=== PATIENT | male | born 1950 | race Caucasian/White ===

== ENCOUNTER → 2018-01-21 | Outpatient (CLI) | payer MEDICARE, OTHER | END | disposition home or self-care (01) | LOC: CVU 12:41 | PROVIDERS: ATTEND Internal Medicine Cardiovascular Disease | DX: I10 Essential (primary) hypertension (principal); R42 Dizziness and giddiness | CPT/HCPCS: 93306 ==

== ENCOUNTER 2018-02-15 23:50 | Inpatient (IN) | payer MEDICARE, OTHER ==
[~2018-02-15] VITALS: Ht 185.4 cm; Wt 77.2 kg
[~2018-02-15 23:50] MED LIST: CHOL500015 PO; LOSA25TA5 PO; MULT-115 PO
[2018-02-16] MEDS ORDERED: LOSA50TA2 PO (00:04)
[2018-02-16] MEDS ORDERED: PROMETHAZINE 25 MG/ML, 1ML IM ONE (00:30)
[2018-02-16] MEDS ORDERED: FAMOTIDINE 20 MG/2 ML IVPush ONE (00:30)
[2018-02-16] MEDS ORDERED: SODIUM CHLORIDE FLUSH 10ML SYR IVF ONE (00:30)
[2018-02-16] MEDS ORDERED: MORPHINE SULFATE 4 MG/ML, 1ML IVPush PRN (00:30)
[2018-02-16] MEDS ORDERED: SODIUM CHLORIDE 0.9% 1,000ML IVBOLUS ONE (00:30)
[2018-02-16] MEDS ORDERED: ONDANSETRON 2MG/ML, 2ML IVPush ONE (00:30)
[2018-02-16] MEDS ORDERED: ONDANSETRON 2MG/ML, 2ML ONE (00:42)
[2018-02-16 00:43] LABS: BASOPHILS # (AUTO) 0.02 x10^3/uL (0-0.1); BASOPHILS % (AUTO) 0 % (0-1); EOSINOPHILS # (AUTO) 0.06 x10^3/uL (0-0.4); EOSINOPHILS % (AUTO) 1 % (1-7); LYMPHOCYTES # (AUTO) 1.08 x10^3/uL (1-3.4); LYMPHOCYTES % (AUTO) 18 % (22-44); MD NO; MEAN CORPUSCULAR HEMOGLOBIN 31.7 pg (27.5-34.5); MEAN CORPUSCULAR HGB CONC 33.8 g/dL (33.2-36.2); MEAN CORPUSCULAR VOLUME 93.8 fL (81-97); MONOCYTES # (AUTO) 0.42 x10^3/uL (0.2-0.8); MONOCYTES % (AUTO) 7 % (2-9); NEUTROPHILS % (AUTO) 74 % (42-75); PLATELET COUNT 238 x10^3/uL (130-400); RED BLOOD COUNT 4.71 x10^6/uL (4.38-5.82); RED CELL DISTRIBUTION WIDTH 13.6 % (9.4-14.8)
[2018-02-16] MEDS ORDERED: FAMOTIDINE 20 MG/2 ML ONE (00:43)
[2018-02-16] MEDS ORDERED: MORPHINE SULFATE 4 MG/ML, 1ML ONE (00:43)
[2018-02-16 00:53] LABS: ALANINE AMINOTRANSFERASE 145 U/L (12-78); ALBUMIN 3.8 g/dL (3.4-5.0); ANION GAP 8 mmol/L (5-15); CALCIUM 9.6 mg/dL (8.5-10.1); CHLORIDE 98 mmol/L (98-107); CREATININE 1.01 mg/dL (0.7-1.3)
[2018-02-16 00:56] LABS: ALKALINE PHOSPHATASE 166 U/L (45-117); TOTAL PROTEIN 7.1 g/dL (6.4-8.2)
[2018-02-16 02:24] LABS: MICROSCOPIC INDICATED
[2018-02-16] MEDS ORDERED: POTASSIUM CHLORIDE 20 MEQ TAB.ER.PRT PO ONE (02:30)
[2018-02-16] MEDS ORDERED: TEMAZEPAM 15 MG CAPSULE PO PRN (02:30)
[2018-02-16] MEDS ORDERED: ONDANSETRON 2MG/ML, 2ML IVPush PRN (02:30)
[2018-02-16] MEDS ORDERED: OXYcodone IR 5MG TABLET PO PRN (02:30)
[2018-02-16] MEDS ORDERED: hydrALAzine 20 MG/ML, 1ML IVPush PRN (02:30)
[2018-02-16] MEDS ORDERED: ACETAMINOPHEN 325 MG TABLET PO PRN (02:30)
[2018-02-16] MEDS ORDERED: HYDROmorphone 2 MG/ML, 1ML IVPush PRN (02:30)
[2018-02-16] MEDS ORDERED: ONDANSETRON ODT 4 MG PO PRN (02:30)
[2018-02-16] MEDS ORDERED: DOCUSATE 100 MG CAPSULE PO PRN (02:30)
[2018-02-16 02:31] LABS: CULTURE INDICATED? NO
[2018-02-16 02:41] VITALS: BP 152/88
[2018-02-16] MEDS: POTASSIUM CHLORIDE 20 MEQ in LACTATED RINGERS 1,000 ML IV SCH ×2 (03:06→15:04)
[2018-02-16 05:24] LABS: BASOPHILS # (AUTO) 0.02 x10^3/uL (0-0.1); BASOPHILS % (AUTO) 0 % (0-1); EOSINOPHILS # (AUTO) 0.04 x10^3/uL (0-0.4); EOSINOPHILS % (AUTO) 1 % (1-7); LYMPHOCYTES # (AUTO) 1.08 x10^3/uL (1-3.4); LYMPHOCYTES % (AUTO) 18 % (22-44); MD NO; MEAN CORPUSCULAR HGB CONC 33.8 g/dL (33.2-36.2); MEAN CORPUSCULAR VOLUME 94.6 fL (81-97); MEAN PLATELET VOLUME 7.1 fL (7.4-10.4); MONOCYTES # (AUTO) 0.36 x10^3/uL (0.2-0.8); MONOCYTES % (AUTO) 6 % (2-9); NEUTROPHILS # (AUTO) 4.48 x10^3/uL (1.8-6.8); NEUTROPHILS % (AUTO) 75 % (42-75); PLATELET COUNT 215 x10^3/uL (130-400); RED BLOOD COUNT 4.11 x10^6/uL (4.38-5.82); RED CELL DISTRIBUTION WIDTH 13.5 % (9.4-14.8)
[2018-02-16 05:38] LABS: CHLORIDE 103 mmol/L (98-107)
[2018-02-16 05:50] LABS: ALANINE AMINOTRANSFERASE 119 U/L (12-78); ALBUMIN 3.2 g/dL (3.4-5.0); ALKALINE PHOSPHATASE 136 U/L (45-117); ANION GAP 7 mmol/L (5-15); BILIRUBIN,TOTAL 2.4 mg/dL (0.2-1.0); CALCIUM 8.9 mg/dL (8.5-10.1); CREATININE 0.91 mg/dL (0.7-1.3); TOTAL PROTEIN 5.9 g/dL (6.4-8.2)
[2018-02-16 06:53] VITALS: BP 132/80
[2018-02-16] MEDS: FAMOTIDINE 20 MG/2 ML IVPush SCH ×2 (09:22→20:13)
[2018-02-16 11:05] VITALS: BP 121/74
[2018-02-16 14:20] VITALS: BP 126/73
[2018-02-16] MEDS ORDERED: OMNIPAQUE 350 MG/ML, 100ML BOTTLE ONE (17:55)
[2018-02-16 19:20] VITALS: BP 151/79
[2018-02-17] MEDS: POTASSIUM CHLORIDE 20 MEQ in LACTATED RINGERS 1,000 ML IV SCH (01:03)
[2018-02-17 01:11] VITALS: BP 156/80
[2018-02-17 05:41] LABS: CHOL/HDL RATIO 3.4; LDL/HDL RATIO 1.9 (0.5-3.0)
[2018-02-17 07:22] VITALS: BP 124/73
[2018-02-17 07:46] LABS: BILIRUBIN, DIRECT 1.2 mg/dL (0.1-0.2)
[2018-02-17 07:49] LABS: BILIRUBIN,INDIRECT 0.8 mg/dL (0.0-2.0); TOTAL PROTEIN 5.6 g/dL (6.4-8.2)
[2018-02-17] MEDS: FAMOTIDINE 20 MG/2 ML IVPush SCH (08:13)
[2018-02-17 13:22] VITALS: BP 159/79
[2018-02-17] MEDS ORDERED: ONDA4TAB13 PO (16:57)
[2018-02-17] MEDS ORDERED: FAMO40OR3 PO (16:57)
== END 2018-02-17 18:03 | disposition home or self-care (01) | DRG 393 ==
LOC: ED 23:59 → EDIP 02-16 01:53 → 3NE 02-16 02:29
PROVIDERS: ADMIT Internal Medicine; ATTEND Internal Medicine
DX: K91.89 Other postprocedural complications and disorders of digestive system (principal); K85.90 Acute pancreatitis without necrosis or infection, unspecified; C17.0 Malignant neoplasm of duodenum; E87.6 Hypokalemia; I10 Essential (primary) hypertension; Z96.642 Presence of left artificial hip joint; Y83.8 Other surgical procedures as the cause of abnormal reaction of the patient, or of later complication, without mention of misadventure at the time of the procedure; Y92.9 Unspecified place or not applicable
CPT/HCPCS: 36415; 71260; 74022; 74177; 74181; 80053; 80061; 80076; 81001; 83690; 83735; 84100; 85025; 93005; 96361; 96374; 96375; 99285; J2405; J3480; Q9967; J7030; J7120; S0028

== ENCOUNTER 2018-02-22 09:29 | Inpatient (IN) | payer MEDICARE, OTHER ==
[~2018-02-22] VITALS: Ht 185.4 cm; Wt 77.9 kg
[~2018-02-22 09:29] MED LIST changes: +FAMO40OR3 PO; +LOSA50TA2 PO; +ONDA4TAB13 PO
[2018-02-22] MEDS ORDERED: FAMOTIDINE 20 MG/2 ML ONE (10:27)
[2018-02-22] MEDS ORDERED: ONDANSETRON 2MG/ML, 2ML ONE (10:27)
[2018-02-22] MEDS ORDERED: MAALOX/HYOSCYAMINE/LIDOCAINE 45 ML BTL ONE (10:27)
[2018-02-22] MEDS ORDERED: SODIUM CHLORIDE 0.9% 1,000ML IVBOLUS ONE (10:30)
[2018-02-22] MEDS ORDERED: ONDANSETRON 2MG/ML, 2ML IVPush ONE (10:30)
[2018-02-22] MEDS ORDERED: MAALOX/HYOSCYAMINE/LIDOCAINE 45 ML BTL PO ONE (10:30)
[2018-02-22] MEDS ORDERED: SODIUM CHLORIDE FLUSH 10ML SYR IVF ONE (10:30)
[2018-02-22] MEDS ORDERED: FAMOTIDINE 20 MG/2 ML IVP ONE (10:30)
[2018-02-22 10:54] LABS: MEAN CORPUSCULAR HEMOGLOBIN 32.6 pg (27.5-34.5); MEAN CORPUSCULAR HGB CONC 34.1 g/dL (33.2-36.2); MEAN CORPUSCULAR VOLUME 95.8 fL (81-97); MEAN PLATELET VOLUME 6.9 fL (7.4-10.4); PLATELET COUNT 305 x10^3/uL (130-400)
[2018-02-22 11:08] LABS: TROPONIN I < 0.015 ng/mL (0.000-0.045)
[2018-02-22 11:10] LABS: BASOPHILS # (AUTO) 0.02 x10^3/uL (0-0.1); BASOPHILS % (AUTO) 0 % (0-1); EOSINOPHILS # (AUTO) 0.09 x10^3/uL (0-0.4); EOSINOPHILS % (AUTO) 1 % (1-7); LYMPHOCYTES # (AUTO) 0.84 x10^3/uL (1-3.4); LYMPHOCYTES % (AUTO) 11 % (22-44); MD SCAN; MONOCYTES # (AUTO) 0.53 x10^3/uL (0.2-0.8); MONOCYTES % (AUTO) 7 % (2-9); NEUTROPHILS # (AUTO) 6.19 x10^3/uL (1.8-6.8); NEUTROPHILS % (AUTO) 81 % (42-75)
[2018-02-22 11:13] LABS: ALANINE AMINOTRANSFERASE 89 U/L (12-78); ALBUMIN 3.4 g/dL (3.4-5.0); ANION GAP 7 mmol/L (5-15); CALCIUM 9.3 mg/dL (8.5-10.1); CHLORIDE 98 mmol/L (98-107); CREATININE 1.01 mg/dL (0.7-1.3)
[2018-02-22 11:15] LABS: ALKALINE PHOSPHATASE 148 U/L (45-117); BILIRUBIN,TOTAL 2.3 mg/dL (0.2-1.0); TOTAL PROTEIN 6.5 g/dL (6.4-8.2)
[2018-02-22 12:59] VITALS: BP 145/77
[2018-02-22] MEDS ORDERED: POTASSIUM CHLORIDE 20 MEQ TAB.ER.PRT PO ONE (13:30)
[2018-02-22] MEDS ORDERED: ONDANSETRON 2MG/ML, 2ML IVPush PRN (13:30)
[2018-02-22] MEDS ORDERED: ONDANSETRON ODT 4 MG PO PRN (13:30)
[2018-02-22] MEDS ORDERED: LABETALOL 5MG/ML, 20ML IVPush PRN (13:30)
[2018-02-22] MEDS ORDERED: POLYETHYLENE GLYCOL 17 GM PACKET PO PRN (13:30)
[2018-02-22 13:34] LABS: INTERNATIONAL NORMALIZED RATIO 1.22 (0.93-1.1); PROTHROMBIN TIME 12.6 Seconds (9.6-11.5)
[2018-02-22 13:46] LABS: FREE T4 (FREE THYROXINE) 1.35 ng/dL (0.76-1.46)
[2018-02-22] MEDS ORDERED: POTASSIUM CHLORIDE 20 MEQ PACKET PO ONE (14:00)
[2018-02-22] MEDS: PANTOPRAZOLE 40 MG IV IVPush SCH (15:37)
[2018-02-22] MEDS: D5%-0.45NACL+KCL 20MEQ 1,000 ML IV SCH ×2 (16:00→23:48)
[2018-02-22] MEDS ORDERED: POTASSIUM CHLORIDE 40 MEQ in SODIUM CHLORIDE 0.9% 500 ML IV ONE (16:30)
[2018-02-22 16:37] LABS: MICROSCOPIC NOT IND
[2018-02-22 16:39] LABS: CULTURE INDICATED? NO
[2018-02-22 20:28] VITALS: BP 147/70
[2018-02-23 02:32] VITALS: BP 134/77
[2018-02-23] MEDS: PANTOPRAZOLE 40 MG IV IVPush SCH ×2 (02:40→14:52)
[2018-02-23 05:00] LABS: BASOPHILS # (AUTO) 0.03 x10^3/uL (0-0.1); BASOPHILS % (AUTO) 0 % (0-1); EOSINOPHILS # (AUTO) 0.08 x10^3/uL (0-0.4); EOSINOPHILS % (AUTO) 1 % (1-7); LYMPHOCYTES # (AUTO) 0.56 x10^3/uL (1-3.4); LYMPHOCYTES % (AUTO) 8 % (22-44); MD NO; MEAN CORPUSCULAR HEMOGLOBIN 31.9 pg (27.5-34.5); MEAN CORPUSCULAR HGB CONC 33.6 g/dL (33.2-36.2); MEAN CORPUSCULAR VOLUME 94.8 fL (81-97); MEAN PLATELET VOLUME 6.4 fL (7.4-10.4); MONOCYTES % (AUTO) 8 % (2-9); NEUTROPHILS % (AUTO) 82 % (42-75); PLATELET COUNT 262 x10^3/uL (130-400); RED BLOOD COUNT 4.06 x10^6/uL (4.38-5.82); RED CELL DISTRIBUTION WIDTH 12.9 % (9.4-14.8)
[2018-02-23 05:15] LABS: ALBUMIN 2.8 g/dL (3.4-5.0); ANION GAP 8 mmol/L (5-15); CALCIUM 8.2 mg/dL (8.5-10.1); CHLORIDE 103 mmol/L (98-107)
[2018-02-23 05:28] LABS: ALANINE AMINOTRANSFERASE 177 U/L (12-78); ALKALINE PHOSPHATASE 180 U/L (45-117); BILIRUBIN,TOTAL 2.5 mg/dL (0.2-1.0); CREATININE 0.78 mg/dL (0.7-1.3); TOTAL PROTEIN 5.6 g/dL (6.4-8.2)
[2018-02-23 07:15] VITALS: BP 136/78
[2018-02-23] MEDS ORDERED: MAGNESIUM SULFATE PMX 2GM/50ML 50 ML IV ONE (07:30)
[2018-02-23] MEDS: D5%-0.45NACL+KCL 20MEQ 1,000 ML IV SCH ×3 (08:00→23:38)
[2018-02-23] MEDS: SENNA/DOCUSATE TABLET PO SCH (08:09)
[2018-02-23] MEDS: CHOLECALCIFEROL 1,000 UNIT TABLET PO SCH (08:11)
[2018-02-23 12:48] VITALS: BP 114/75
[2018-02-23 19:02] VITALS: BP 140/80
[2018-02-24] MEDS: PANTOPRAZOLE 40 MG IV IVPush SCH ×2 (02:43→15:44)
[2018-02-24 03:50] VITALS: BP 152/72
[2018-02-24 06:46] LABS: BASOPHILS # (AUTO) 0.02 x10^3/uL (0-0.1); BASOPHILS % (AUTO) 0 % (0-1); EOSINOPHILS # (AUTO) 0.14 x10^3/uL (0-0.4); EOSINOPHILS % (AUTO) 3 % (1-7); LYMPHOCYTES # (AUTO) 0.73 x10^3/uL (1-3.4); LYMPHOCYTES % (AUTO) 14 % (22-44); MD NO; MEAN CORPUSCULAR HEMOGLOBIN 31.6 pg (27.5-34.5); MEAN CORPUSCULAR HGB CONC 33.4 g/dL (33.2-36.2); MEAN CORPUSCULAR VOLUME 94.7 fL (81-97); MEAN PLATELET VOLUME 6.2 fL (7.4-10.4); MONOCYTES # (AUTO) 0.43 x10^3/uL (0.2-0.8); MONOCYTES % (AUTO) 9 % (2-9); NEUTROPHILS # (AUTO) 3.78 x10^3/uL (1.8-6.8); NEUTROPHILS % (AUTO) 74 % (42-75); PLATELET COUNT 259 x10^3/uL (130-400); RED BLOOD COUNT 4.06 x10^6/uL (4.38-5.82); RED CELL DISTRIBUTION WIDTH 13.1 % (9.4-14.8)
[2018-02-24 06:58] LABS: ALBUMIN 2.9 g/dL (3.4-5.0); ANION GAP 7 mmol/L (5-15); CALCIUM 8.1 mg/dL (8.5-10.1); CHLORIDE 105 mmol/L (98-107)
[2018-02-24 07:02] LABS: ALANINE AMINOTRANSFERASE 180 U/L (12-78); ALKALINE PHOSPHATASE 203 U/L (45-117); BILIRUBIN,TOTAL 1.8 mg/dL (0.2-1.0); CREATININE 0.89 mg/dL (0.7-1.3); TOTAL PROTEIN 5.7 g/dL (6.4-8.2)
[2018-02-24 07:10] VITALS: BP 146/82
[2018-02-24] MEDS: CHOLECALCIFEROL 1,000 UNIT TABLET PO SCH (08:46)
[2018-02-24] MEDS: SENNA/DOCUSATE TABLET PO SCH (08:46)
[2018-02-24] MEDS: D5%-0.45NACL+KCL 20MEQ 1,000 ML IV SCH ×2 (10:46→15:30)
[2018-02-24 12:56] VITALS: BP 133/72
[2018-02-24] MEDS ORDERED: OMEP-110 PO (17:36)
== END 2018-02-24 19:15 | disposition home health service (06) | DRG 439 ==
LOC: ED 11:32 → 4EST 11:33 → ED 12:25
PROVIDERS: ADMIT Hospitalist; ATTEND Hospitalist
DX: K85.90 Acute pancreatitis without necrosis or infection, unspecified (principal); C17.0 Malignant neoplasm of duodenum; E87.1 Hypo-osmolality and hyponatremia; G89.3 Neoplasm related pain (acute) (chronic); E87.6 Hypokalemia; E86.0 Dehydration; I10 Essential (primary) hypertension; Z85.828 Personal history of other malignant neoplasm of skin; Z96.642 Presence of left artificial hip joint
CPT/HCPCS: 36415; 80053; 81003; 83690; 83735; 84100; 84439; 84443; 84484; 85025; 85610; 85730; 93005; 96361; 96374; 96375; 99285; J2405; J3480; C9113; J3475; J7030; J7040; S0028

== ENCOUNTER → 2018-04-12 | Outpatient (CLI) | payer MEDICARE, OTHER ==
[~2018-04-12] MED LIST changes: +OMEP-110 PO; +OMNIPAQUE 350 MG/ML, 100ML BOTTLE ONE
== END | disposition home or self-care (01) ==
LOC: RAD 09:33
PROVIDERS: ATTEND Specialist
DX: Z08 Encounter for follow-up examination after completed treatment for malignant neoplasm (principal); C25.0 Malignant neoplasm of head of pancreas; K86.81 Exocrine pancreatic insufficiency; J84.10 Pulmonary fibrosis, unspecified
CPT/HCPCS: 71260; 74160; J1642; Q9967

== ENCOUNTER 2018-05-07 14:39 | Inpatient (IN) | payer MEDICARE, OTHER ==
[~2018-05-07] VITALS: Ht 188 cm; Wt 64.1 kg
[~2018-05-07 14:39] MED LIST changes: -LOSA25TA5 PO; +LOSA25TA6 PO; -OMNIPAQUE 350 MG/ML, 100ML BOTTLE ONE
[2018-05-07 15:09] LABS: BASOPHILS # (AUTO) 0.01 x10^3/uL (0-0.1); BASOPHILS % (AUTO) 0 % (0-1); EOSINOPHILS # (AUTO) 0.04 x10^3/uL (0-0.4); EOSINOPHILS % (AUTO) 1 % (1-7); LYMPHOCYTES # (AUTO) 0.32 x10^3/uL (1-3.4); LYMPHOCYTES % (AUTO) 6 % (22-44); MD NO; MEAN CORPUSCULAR HEMOGLOBIN 30.1 pg (27.5-34.5); MEAN CORPUSCULAR HGB CONC 34.7 g/dL (33.2-36.2); MEAN CORPUSCULAR VOLUME 86.9 fL (81-97); MEAN PLATELET VOLUME 6.1 fL (7.4-10.4); MONOCYTES # (AUTO) 0.32 x10^3/uL (0.2-0.8); MONOCYTES % (AUTO) 6 % (2-9); NEUTROPHILS # (AUTO) 4.49 x10^3/uL (1.8-6.8); NEUTROPHILS % (AUTO) 87 % (42-75); PLATELET COUNT 162 x10^3/uL (130-400); RED BLOOD COUNT 4.09 x10^6/uL (4.38-5.82); RED CELL DISTRIBUTION WIDTH 14.2 % (9.4-14.8)
[2018-05-07 15:17] LABS: ALBUMIN 3.2 g/dL (3.4-5.0); ANION GAP 8 mmol/L (5-15); CALCIUM 8.4 mg/dL (8.5-10.1); CHLORIDE 102 mmol/L (98-107)
[2018-05-07 15:23] LABS: ALANINE AMINOTRANSFERASE 641 U/L (12-78); ALKALINE PHOSPHATASE 321 U/L (45-117); BILIRUBIN,TOTAL 4.1 mg/dL (0.2-1.0); CREATININE 1.52 mg/dL (0.7-1.3); TOTAL PROTEIN 6.6 g/dL (6.4-8.2); TROPONIN I < 0.015 ng/mL (0.000-0.045)
[2018-05-07] MEDS ORDERED: SODIUM CHLORIDE 0.9% 1,000 ML IV ONE (15:28)
[2018-05-07 16:09] LABS: MICROSCOPIC AUTO
[2018-05-07 16:29] LABS: CULTURE INDICATED? YES
[2018-05-07] MEDS ORDERED: CEFTRIAXONE PMX 1GM/50ML 50 ML ONE (17:43)
[2018-05-07] MEDS ORDERED: CEFTRIAXONE PMX 1GM/50ML 50 ML IV ONE (18:00)
[2018-05-07] MEDS ORDERED: ONDANSETRON ODT 4 MG PO PRN (18:30)
[2018-05-07] MEDS ORDERED: BISACODYL 10 MG SUPP PR PRN (18:30)
[2018-05-07] MEDS ORDERED: POLYETHYLENE GLYCOL 17 GM PACKET PO PRN (18:30)
[2018-05-07 19:00] VITALS: BP 132/83
[2018-05-07] MEDS: HEPARIN 5,000 UNITS/ML, 1ML SQ SCH (20:14)
[2018-05-07] MEDS: IBUPROFEN 200 MG TABLET PO PRN (21:29)
[2018-05-07] MEDS: NS + 20MEQ KCL 1,000 ML IV SCH (21:29)
[2018-05-07] MEDS ORDERED: LIPA1CAP PO (22:19)
[2018-05-08 00:14] VITALS: BP 131/72
[2018-05-08] MEDS ORDERED: DIPHENHYDRAMINE 25 MG CAPSULE PO ONE (01:30)
[2018-05-08] MEDS: HEPARIN 5,000 UNITS/ML, 1ML SQ SCH ×3 (01:38→20:44)
[2018-05-08 06:15] LABS: BASOPHILS # (AUTO) 0.01 x10^3/uL (0-0.1); BASOPHILS % (AUTO) 0 % (0-1); EOSINOPHILS # (AUTO) 0.05 x10^3/uL (0-0.4); EOSINOPHILS % (AUTO) 1 % (1-7); LYMPHOCYTES # (AUTO) 0.45 x10^3/uL (1-3.4); LYMPHOCYTES % (AUTO) 12 % (22-44); MD NO; MEAN CORPUSCULAR HEMOGLOBIN 30.4 pg (27.5-34.5); MEAN CORPUSCULAR HGB CONC 34.7 g/dL (33.2-36.2); MEAN CORPUSCULAR VOLUME 87.6 fL (81-97); MEAN PLATELET VOLUME 6.3 fL (7.4-10.4); MONOCYTES # (AUTO) 0.28 x10^3/uL (0.2-0.8); MONOCYTES % (AUTO) 8 % (2-9); NEUTROPHILS # (AUTO) 2.83 x10^3/uL (1.8-6.8); NEUTROPHILS % (AUTO) 78 % (42-75); PLATELET COUNT 137 x10^3/uL (130-400); RED BLOOD COUNT 3.46 x10^6/uL (4.38-5.82); RED CELL DISTRIBUTION WIDTH 14.3 % (9.4-14.8)
[2018-05-08 06:20] LABS: ALANINE AMINOTRANSFERASE 425 U/L (12-78); ALBUMIN 2.7 g/dL (3.4-5.0); ANION GAP 10 mmol/L (5-15); CALCIUM 8.3 mg/dL (8.5-10.1); CHLORIDE 107 mmol/L (98-107); CREATININE 1.09 mg/dL (0.7-1.3)
[2018-05-08 06:22] LABS: ALKALINE PHOSPHATASE 262 U/L (45-117); TOTAL PROTEIN 5.6 g/dL (6.4-8.2)
[2018-05-08 06:48] VITALS: BP 138/78
[2018-05-08] MEDS: CREON 36000 UNIT PO SCH ×3 (07:00→16:00)
[2018-05-08] MEDS: NS + 20MEQ KCL 1,000 ML IV SCH ×2 (07:56→18:25)
[2018-05-08] MEDS ORDERED: MULTIVITAMINS/MINERALS TABLET PO SCH (09:00)
[2018-05-08] MEDS ORDERED: CHOLECALCIFEROL 5,000u TAB PO SCH (09:00)
[2018-05-08] MEDS: SENNA/DOCUSATE TABLET PO SCH (09:24)
[2018-05-08] MEDS: OMEPRAZOLE 20 MG CAPSULE.DR PO SCH (09:25)
[2018-05-08] MEDS: LOSARTAN 25MG TABLET PO SCH (09:25)
[2018-05-08] MEDS: IBUPROFEN 200 MG TABLET PO PRN (11:03)
[2018-05-08] MEDS ORDERED: CATHFLO-ALTEPLASE 2 MG/2 ML CATHFLUSH ONE (11:30)
[2018-05-08] MEDS: morphine SULFATE 10 MG/ML, 1ML IVPush PRN (11:52)
[2018-05-08 12:02] VITALS: BP 174/79
[2018-05-08 19:18] VITALS: BP 108/66
[2018-05-09 01:01] VITALS: BP 101/60
[2018-05-09] MEDS: NS + 20MEQ KCL 1,000 ML IV SCH (04:43)
[2018-05-09] MEDS: HEPARIN 5,000 UNITS/ML, 1ML SQ SCH ×4 (04:54→19:51)
[2018-05-09] MEDS: CREON 36000 UNIT PO SCH ×4 (07:00→18:57)
[2018-05-09 08:07] VITALS: BP 134/79
[2018-05-09] MEDS: LOSARTAN 25MG TABLET PO SCH ×2 (08:57→15:31)
[2018-05-09] MEDS: SENNA/DOCUSATE TABLET PO SCH (08:57)
[2018-05-09] MEDS: OMEPRAZOLE 20 MG CAPSULE.DR PO SCH (08:57)
[2018-05-09] MEDS ORDERED: MIDAZOLAM 1 MG/ML, 2ML ONE (08:58)
[2018-05-09] MEDS ORDERED: FENTANYL PF 100 MCG/2ML ONE (08:58)
[2018-05-09] MEDS ORDERED: HYDROmorphone 1 MG/ML, 1ML IV PRN (09:30)
[2018-05-09] MEDS ORDERED: hydrALAzine 20 MG/ML, 1ML IV PRN (09:30)
[2018-05-09] MEDS ORDERED: ALBUTEROL SULFATE 2.5 MG/3 ML NPPB PRN (09:30)
[2018-05-09] MEDS ORDERED: OXYcodone 5 MG/5 ML ORAL.SOL UDC PO PRN (09:30)
[2018-05-09] MEDS ORDERED: FENTANYL PF 100 MCG/2ML IV PRN (09:30)
[2018-05-09] MEDS ORDERED: LABETALOL 5MG/ML, 20ML IV PRN (09:30)
[2018-05-09] MEDS ORDERED: LORazepam 2 MG/ML, 1ML IVPush PRN (09:30)
[2018-05-09] MEDS ORDERED: ONDANSETRON 2MG/ML, 2ML ONE (10:26)
[2018-05-09] MEDS ORDERED: PROPOFOL 10 MG/ML, 20ML ONE (10:26)
[2018-05-09] MEDS ORDERED: ROCURONIUM 10MG/ML,5ML ONE (10:26)
[2018-05-09] MEDS ORDERED: DEXAMETHASONE 4 MG/ML, 1ML ONE (10:26)
[2018-05-09] MEDS ORDERED: SUCCINYLCHOLINE 20 MG/ML, 10ML ONE (10:26)
[2018-05-09 12:54] LABS: ALANINE AMINOTRANSFERASE 296 U/L (12-78); ALBUMIN 2.6 g/dL (3.4-5.0); ANION GAP 10 mmol/L (5-15); CALCIUM 8.3 mg/dL (8.5-10.1); CHLORIDE 105 mmol/L (98-107); CREATININE 1.08 mg/dL (0.7-1.3)
[2018-05-09 12:55] LABS: ALKALINE PHOSPHATASE 260 U/L (45-117); BILIRUBIN,TOTAL 4.8 mg/dL (0.2-1.0); TOTAL PROTEIN 5.7 g/dL (6.4-8.2)
[2018-05-09 14:43] VITALS: BP 149/79
[2018-05-09 15:35] LABS: INTERNATIONAL NORMALIZED RATIO 1.24 (0.93-1.1); PROTHROMBIN TIME 12.8 Seconds (9.6-11.5)
[2018-05-09 19:36] VITALS: BP 147/80
[2018-05-10 00:10] VITALS: BP 139/78
[2018-05-10 05:41] LABS: INTERNATIONAL NORMALIZED RATIO 1.24 (0.93-1.1); PROTHROMBIN TIME 12.8 Seconds (9.6-11.5)
[2018-05-10 05:51] LABS: ALBUMIN 2.5 g/dL (3.4-5.0); ANION GAP 10 mmol/L (5-15); CALCIUM 8.6 mg/dL (8.5-10.1); CHLORIDE 105 mmol/L (98-107)
[2018-05-10 05:57] LABS: ALANINE AMINOTRANSFERASE 247 U/L (12-78); ALKALINE PHOSPHATASE 262 U/L (45-117); BILIRUBIN,TOTAL 4.7 mg/dL (0.2-1.0); TOTAL PROTEIN 5.4 g/dL (6.4-8.2)
[2018-05-10 07:10] VITALS: BP 164/80
[2018-05-10] MEDS: LOSARTAN 25MG TABLET PO SCH (08:28)
[2018-05-10] MEDS: OMEPRAZOLE 20 MG CAPSULE.DR PO SCH (08:28)
[2018-05-10] MEDS: SENNA/DOCUSATE TABLET PO SCH (08:29)
[2018-05-10] MEDS: morphine SULFATE 10 MG/ML, 1ML IVPush PRN ×4 (08:36→21:45)
[2018-05-10] MEDS: CREON 36000 UNIT PO SCH ×2 (09:07→16:00)
[2018-05-10 12:07] VITALS: BP 121/80
[2018-05-10] MEDS: HEPARIN 5,000 UNITS/ML, 1ML SQ SCH ×2 (13:00→19:04)
[2018-05-10] MEDS ORDERED: FENTANYL PF 100 MCG/2ML ONE (14:50)
[2018-05-10] MEDS ORDERED: MIDAZOLAM 1 MG/ML, 5ML ONE (14:51)
[2018-05-10] MEDS ORDERED: LIDOCAINE-MPF 2%, 2ML ONE (14:51)
[2018-05-10] MEDS ORDERED: CIPROFLOXACIN/PMX 400MG/200ML 200 ML IVPB ONE (15:30)
[2018-05-10] MEDS ORDERED: VISIPAQUE 270 MG/ML, 50ML BOTTLE ONE (15:41)
[2018-05-10 20:08] VITALS: BP 135/75
[2018-05-10] MEDS: ACETAMINOPHEN 325 MG TABLET PO PRN (20:59)
[2018-05-11] MEDS: morphine SULFATE 10 MG/ML, 1ML IVPush PRN ×2 (01:04→04:23)
[2018-05-11 04:18] VITALS: BP 135/75
[2018-05-11] MEDS: HEPARIN 5,000 UNITS/ML, 1ML SQ SCH ×2 (05:00→13:00)
[2018-05-11 05:22] LABS: ALBUMIN 2.4 g/dL (3.4-5.0); ANION GAP 8 mmol/L (5-15); CALCIUM 8.1 mg/dL (8.5-10.1); CHLORIDE 104 mmol/L (98-107)
[2018-05-11 05:25] LABS: ALANINE AMINOTRANSFERASE 218 U/L (12-78); ALKALINE PHOSPHATASE 272 U/L (45-117); BILIRUBIN,TOTAL 4.9 mg/dL (0.2-1.0); CREATININE 1.14 mg/dL (0.7-1.3); TOTAL PROTEIN 5.3 g/dL (6.4-8.2)
[2018-05-11 05:29] LABS: BASOPHILS # (AUTO) 0.01 x10^3/uL (0-0.1); BASOPHILS % (AUTO) 0 % (0-1); EOSINOPHILS # (AUTO) 0.03 x10^3/uL (0-0.4); EOSINOPHILS % (AUTO) 1 % (1-7); LYMPHOCYTES # (AUTO) 0.27 x10^3/uL (1-3.4); LYMPHOCYTES % (AUTO) 6 % (22-44); MD NO; MEAN CORPUSCULAR HGB CONC 33.9 g/dL (33.2-36.2); MEAN CORPUSCULAR VOLUME 88.6 fL (81-97); MEAN PLATELET VOLUME 6.3 fL (7.4-10.4); MONOCYTES # (AUTO) 0.08 x10^3/uL (0.2-0.8); MONOCYTES % (AUTO) 2 % (2-9); NEUTROPHILS # (AUTO) 4.36 x10^3/uL (1.8-6.8); NEUTROPHILS % (AUTO) 92 % (42-75); PLATELET COUNT 148 x10^3/uL (130-400); RED BLOOD COUNT 3.32 x10^6/uL (4.38-5.82); RED CELL DISTRIBUTION WIDTH 14.8 % (9.4-14.8)
[2018-05-11 06:47] VITALS: BP 127/72
[2018-05-11] MEDS: CREON 36000 UNIT PO SCH ×3 (07:00→16:00)
[2018-05-11] MEDS: SENNA/DOCUSATE TABLET PO SCH (07:59)
[2018-05-11] MEDS: LOSARTAN 25MG TABLET PO SCH (08:00)
[2018-05-11] MEDS: OMEPRAZOLE 20 MG CAPSULE.DR PO SCH (08:00)
[2018-05-11] MEDS: ACETAMINOPHEN 325 MG TABLET PO PRN (08:10)
[2018-05-11 13:23] VITALS: BP 110/69
[2018-05-11] MEDS ORDERED: TRAM50TA2 PO (17:19)
[2018-05-11] MEDS ORDERED: HYDR-3240 PO (17:19)
== END 2018-05-11 17:48 | disposition home or self-care (01) | DRG 374 ==
LOC: ED 17:35 → EDIP 17:36 → ED 17:49 → 3NW 18:45
PROVIDERS: ADMIT Internal Medicine; ATTEND Internal Medicine
PROC: 0FJD8ZZ Inspection of Pancreatic Duct, Via Natural or Artificial Opening Endoscopic (ICD-10-PCS; 2018-05-09)
PROC: 0FJB8ZZ Inspection of Hepatobiliary Duct, Via Natural or Artificial Opening Endoscopic (ICD-10-PCS; principal; 2018-05-09 09:00)
PROC: BF101ZZ Fluoroscopy of Bile Ducts using Low Osmolar Contrast (ICD-10-PCS; 2018-05-10)
PROC: 0F9930Z Drainage of Common Bile Duct with Drainage Device, Percutaneous Approach (ICD-10-PCS; 2018-05-10)
DX: C17.0 Malignant neoplasm of duodenum (principal); K83.1 Obstruction of bile duct; C25.9 Malignant neoplasm of pancreas, unspecified; K31.5 Obstruction of duodenum; E87.1 Hypo-osmolality and hyponatremia; N13.30 Unspecified hydronephrosis; E44.1 Mild protein-calorie malnutrition; Z68.1 Body mass index [BMI] 19.9 or less, adult; I10 Essential (primary) hypertension; D64.9 Anemia, unspecified; E87.6 Hypokalemia; I44.0 Atrioventricular block, first degree; Z51.5 Encounter for palliative care; K40.90 Unilateral inguinal hernia, without obstruction or gangrene, not specified as recurrent; Z96.642 Presence of left artificial hip joint; Z82.62 Family history of osteoporosis; Z85.828 Personal history of other malignant neoplasm of skin; Z98.84 Bariatric surgery status; Z90.89 Acquired absence of other organs; Z79.899 Other long term (current) drug therapy
CPT/HCPCS: 36415; 47533; 71045; 74181; 80053; 81001; 83690; 84484; 85025; 85610; 87040; 87086; 93005; 96374; 99156; 99157; 99285; C1894; G0378; J0696; J0744; J1100; J2250; J2405; J2704; J3010; J3480; J3490; Q0162; Q9966; C1751; C1769; C1773; J0330; J2270; J7030; Q0163

== ENCOUNTER → 2018-06-30 | Outpatient (CLI) | payer MEDICARE, OTHER ==
[~2018-06-30] MED LIST changes: +GADOBUTROL 10 MMOL/10 ML VIAL ONE; +HYDR-3240 PO; +LIPA1CAP PO; +TRAM50TA2 PO
== END | disposition home or self-care (01) ==
LOC: RAD 12:12
PROVIDERS: ATTEND Specialist
DX: N13.30 Unspecified hydronephrosis (principal); K86.9 Disease of pancreas, unspecified; C25.0 Malignant neoplasm of head of pancreas
CPT/HCPCS: 74183; A9585; J1642